=== PATIENT | female | born 1985 | race Caucasian/White ===

== ENCOUNTER 2019-12-07 10:05 | Outpatient (CLI) | payer OTHER, SELFPAY | END 2019-12-07 10:06 | disposition home or self-care (01) | LOC: ANHCOVIDDT 10:05 | PROVIDERS: Visit Provider Surgery Plastic and Reconstructive Surgery | DX: Z01.812 Encounter for preprocedural laboratory examination (principal); Z20.828 Contact with and (suspected) exposure to other viral communicable diseases | CPT/HCPCS: 87635; U0003 ==

== ENCOUNTER 2019-12-10 01:51 | Day surgery (SDC) | payer OTHER, SELFPAY ==
[2019-12-10] VITALS (7 sets, daily range): BP systolic 119–133; BP diastolic 75–83; PULSE 81–109; RESP 16–20; TEMP 36.3–36.7; O2SAT 97–100
--- NOTE | 2019-12-10 06:36 | PM.IMHP ---
H&P: HPI History of Present Illness Chief complaint: Micromastia Narrative: Leandra Mann is a 34 year old female who is here for breast augmentation. She would like to proceed. Review of Systems Review of Systems: All systems reviewed & are unremarkable except as noted in HPI and below PMFSH Past Medical History Medical History (Updated 07/14/19 @ 10:06 by Aicha Jara) History of basal cell carcinoma Surgical History Surgical History (Updated 07/14/19 @ 10:02 by Aicha Jara) History of wisdom tooth extraction Social History Social History (Updated 07/14/19 @ 10:02 by Aicha Jara) Smoking status: Former smoker Alcohol intake: current Gender identity (if verbalized by the patient): Female Meds Home Medications and Allergies Home Medications Medication Instructions Recorded Confirmed Type celecoxib 200 mg capsule 200 mg PO BID 07/14/19 12/09/19 History duloxetine 60 mg capsule,delayed 60 mg PO BID 07/14/19 12/09/19 History release sprinkle hydroxychloroquine 200 mg tablet 200 mg PO BID 07/14/19 12/09/19 History lorazepam 0.5 mg tablet 0.5 mg PO DAILY PRN 07/14/19 12/09/19 History topiramate 50 mg capsule,extended 50 mg PO DAILY 07/14/19 12/09/19 History release 24 hr docusate sodium 100 mg capsule 100 mg PO DAILY #14 cap 11/20/19 12/09/19 Rx carisoprodol 350 mg tablet 350 mg PO TID PRN #21 tablet 11/23/19 12/09/19 Rx oxycodone-acetaminophen 5 mg-325 1 tablet PO Q6H PRN #15 tablet 11/23/19 12/09/19 Rx mg tablet Allergies Allergy/AdvReac Type Severity Reaction Status Date / Time adhesive tape Allergy Unknown blisters Verified 12/03/19 13:45 amoxicillin Allergy Unknown unknown Verified 07/14/19 09:59 Exam Narrative: Exam Narrative: Breast: No masses palpable. Const: General: comfortable, no acute distress, alert and awake; No acute distress Orientation/consciousness: oriented to person HENMT: Head: normal to inspection Ears: external ears normal General nose exam: Normal external nose present Face and sinus: normal facial exam Eyes: General: appearance normal, both eyes and all related structures Periorbital: periorbital findings normal Eyelids: eyelids normal Conjunctivae: conjunctivae normal Neck: Neck: normal visual inspection Chest: Chest palpation & inspection: normal inspection of the chest Resp: Effort & Inspection: normal respiratory effort and able to speak in complete sentences GI: Inspection: normal to inspection Neuro: General: oriented to person Psych: Appearance: grossly normal Mental Status: mental status grossly normal Assessment and Plan Assessment and plan (1) Micromastia: Code(s): N64.82 - Hypoplasia of breast Status: Acute Assessment and Plan: She would like to proceed with bilateral breast augmentation, inspira soft touch, IMF, submuscular, approximately 420 ccs. Risks, benefits, alternatives were discussed in extensive detail. I want to be very realistic about the risks involved as well as expectations. Discussed aftercare and what to monitor for. Made sure I answered all questions answered to satisfaction and consent obtained. (2) History of pulmonary embolism: Code(s): Z86.711 - Personal history of pulmonary embolism Status: Acute Assessment and Plan: Her Lovenox is being managed by her primary care physician. I was very up front honest about these risks and she must be willing to accept the risk of DVT, pulmonary embolism, and to proceed. She is well informed of this by us and her primary care she states. This was again discussed in detail today. She understands shortness of breath, chest pain, calf tenderness and other medical emergencies she needs to dial 911 / proceed to ER. 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
--- NOTE | 2019-12-10 06:57 | WPDANESEPPF ---
Anes - Initial Pre Proc Eval Procedure: Operation Date: 12/10/19 07:30 Proposed Procedures p Bilateral Augmentation Mammoplasty - Chaparro Gipson MD Date/Time: 12/10/19 06:57 Surgeon: Chaparro Gipson MD Pre Op Diagnosis: Micromastia Patient Data Age: 34 Gender: F Height: Weight: 61.24 kg Allergies Allergy/AdvReac Type Severity Reaction Status Date / Time adhesive tape Allergy Unknown blisters Verified 12/03/19 13:45 amoxicillin Allergy Unknown unknown Verified 07/14/19 09:59 Home Medications Medication Instructions Recorded Confirmed Type celecoxib 200 mg capsule 200 mg PO BID 07/14/19 12/09/19 History duloxetine 60 mg capsule,delayed 60 mg PO BID 07/14/19 12/09/19 History release sprinkle hydroxychloroquine 200 mg tablet 200 mg PO BID 07/14/19 12/09/19 History lorazepam 0.5 mg tablet 0.5 mg PO DAILY PRN 07/14/19 12/09/19 History topiramate 50 mg capsule,extended 50 mg PO DAILY 07/14/19 12/09/19 History release 24 hr docusate sodium 100 mg capsule 100 mg PO DAILY #14 cap 11/20/19 12/09/19 Rx carisoprodol 350 mg tablet 350 mg PO TID PRN #21 tablet 11/23/19 12/09/19 Rx oxycodone-acetaminophen 5 mg-325 1 tablet PO Q6H PRN #15 tablet 11/23/19 12/09/19 Rx mg tablet Patient hx anesthesia problems: none Family hx anesthesia problems: none PMFSH Past Medical History Medical History History of basal cell carcinoma Surgical History Surgical History History of wisdom tooth extraction Social History Social History Smoking status: Former smoker Alcohol intake: current Gender identity (if verbalized by the patient): Female Anes - Eval Final PreProcedure Day of Procedure 12/10/19 06:57 Patient weight: normal Heart: regular rate and rhythm Lungs: clear to auscultation Airway: Mallampati scale class II Neurological: alert and oriented Last oral intake: >/= 8 hours ASA classification: II Emergent: no Anesthetic plan: proceed Anesthesia type and monitoring: general LMA and standard monitoring Informed Consent: The patient's anesthetic plan and its attendant risks and benefits were discussed with the patient/family/POA. Questions were solicited and answers provided to the satisfaction of the patient/family/POA.
[2019-12-10] MEDS: LACTATED RINGERS 1,000 ML 30 ML IV CONT ×2 (07:15→08:40)
[2019-12-10] MEDS: CLINDAMYCIN 900 MG/NS 50 ML 900 MG/50 ML PIGGYBACK 50 MG IVPB (07:23)
--- NOTE | 2019-12-10 08:34 | PM.PROC ---
Procedure Note - Detailed Date of procedure: 12/10/19 Pre-op diagnosis: Micromastia She is here today for bilateral breast augmentation. Previously and again today the risks, benefits, alternatives were discussed in extensive detail. I wanted her to be very realistic about the risks involved as well as expectations. We discussed aftercare and what to monitor for. Made sure answered all of her questions to her satisfaction today and consent was obtained. Marked in the preoperative holding area with their verification. The patient was taken to the operating room placed supine on the operating table. Anesthesia was provided by anesthesiology. A surgical time-out was taken. We cleansed the skin and 1% lidocaine and 0.25% Marcaine with epinephrine was used anesthetize as a field block. She was prepped and draped in a standard sterile fashion. Tegaderm nipple Ballesteros were placed. A 15 blade used to make an incision along the inframammary fold. Dissection was continued at 45 degree angle until the chest wall as identified. I incised the pectoralis major along its inferior border and completely released the inferior border leaving the medial border intact. I created a subpectoral pocket in the appropriate dimensions based on our preoperative planning for the implant. I then copiously irrigated with saline solution and verified a strict hemostasis. Next the use a triple antibiotic and Betadine containing solution to irrigate the pocket. I washed my gloves with the triple antibiotic and Betadine solution. We washed the implant immediately upon opening it with this solution and only opened it when we needed it. I used implant funnel and no-touch technique. The implant was introduced into the pocket using the funnel. Having verified positioning of the implant this was closed using 2-0 Vicryl followed by 3-0 Monocryl in a running subcuticular 4-0 Monocryl followed by tissue glue. Fluffs, Alistair wrap, and surgical bra were placed. Patient was awoke and taken to PACU without difficulty. All instrument sponge counts were correct at the end of the case. Post-op diagnosis: same Procedure performed: Bilateral breast augmentation Implants: Bilateral 445cc Natrelle Inspira silicone SoftTouch Implants. Right: Dual plane 1 REF [id number] SN [id number] Left: Dual plane 2 REF [id number] SN [id number] Anesthesia: GLMA Surgeon: Chaparro Gipson MD Estimated blood loss (mL): 5 Drains: No Packing: No Pathology: none sent Complications: No immediate complications Condition: stable Disposition: PACU
[2019-12-10] MEDS: LIDO 1%/EPINEPHRINE 1:100,000 10 ML VIAL 80 ML INFILTRATE (09:38)
== END 2019-12-10 10:16 | disposition home or self-care (01) ==
PROVIDERS: Visit Provider Surgery Plastic and Reconstructive Surgery
PROC: (CPT 19325; principal; 2019-12-10 07:30)
DX: Z41.1 Encounter for cosmetic surgery (principal); N64.82 Hypoplasia of breast; E72.12 Methylenetetrahydrofolate reductase deficiency; M06.9 Rheumatoid arthritis, unspecified; Z86.711 Personal history of pulmonary embolism; Z87.891 Personal history of nicotine dependence
CPT/HCPCS: 19325; A9270; J0131; J1100; J1580; J2250; J2405; J2704; J3010; J7030; J7120

== ENCOUNTER 2021-11-14 01:03 | Day surgery (SDC) | payer OTHER, SELFPAY ==
[2021-11-06 10:32] VITALS: BMI 24.8
--- NOTE | 2021-11-06 10:41 | PC.NURSE ---
Report to the Outpatient Waiting Room, entrance under the green pavilion located off [facility], at time 0730 on date 11/14/21. OR Time: 0930. - You and your visitor will be asked a series of questions to screen for COVID 19 for your protection. - A mask is required within the hospital. One visitor will be allowed to accompany the patient into the hospital. Patients visitor will be instructed to remain with patient at all times or leave the building. We will allow the visitor to come back to the postoperative area when patient is ready. Preoperative COVID Testing Requirements: No COVID Test needed if: (proof is required; if not received patient will have Rapid Test prior to entry) - Patient has received COVID Vaccine at least 14 days prior to procedure date or - Patient has positive COVID test result within last 90 days of surgery date. COVID Test needed if above criteria is not met Patients may have clear liquids (water, carbonated beverages, clear teas, apple juice) until 3 hours prior to surgery with a maximum of 20 ounces. - No food from midnight until time of surgery Take the following medications with a SIP of water the morning of surgery: DULOXETINE, TOPIRAMATE, LORAZEPAM (IF NEEDED) Medications to discontinue per physician: CELECOXIB, HYDROXYCHLOROQUINE Date to take last dose: PER DR. ATKINSON Please no make-up, nail turkmen, hairspray, perfume, deodorant, or body powder the day of surgery. No jewelry (including any body piercings) or valuables the day of surgery, leave them at home. Please take a shower or bath the night before, or the morning of, surgery with an antibacterial soap. Wear comfortable, loose fitting clothing. - Jewelry must be removed prior to entering the operating room. Rings and piercings that are not removed may be cut off. - The hospital will not accept responsibility for valuables. - Please leave all valuables, including medications, at home the day of surgery. If you are going home after surgery, a licensed limousine driver must drive you home. - NO public transportation without another adult. - We recommend that an adult stay with you for 24 hours following discharge. - We also recommend that you do not drive, make important decision, drink alcoholic beverages, or take any drugs that were not prescribed by your health care provider for at least 24 hours after your discharge time. Follow any additional instructions given to you from your surgeon. Telephone instructions given to SHIKHA JONATHAN and asked if any additional questions and then verbalized understanding. Patient advised to call surgeon office or pre surgery nurse liaison [phone] if any additional questions.
[2021-11-14] VITALS (9 sets, daily range): BP systolic 104–143; BP diastolic 67–103; PULSE 53–110; RESP 16–22; TEMP 36.4–37; O2SAT 92–100
[2021-11-14 07:49] LABS: Urine Cotinine NEGATIVE
[2021-11-14] MEDS: LACTATED RINGERS 1,000 ML 30 ML IV CONT ×3 (08:00→13:53)
--- NOTE | 2021-11-14 08:34 | WPDANESEPPF ---
Anes - Initial Pre Proc Eval Procedure: Operation Date: 11/14/21 09:30 Proposed Procedures p Abdominoplasty with Liposuction - Chaparro Gipson MD Date/Time: 11/14/21 08:34 Surgeon: Chaparro Gipson MD Pre Op Diagnosis: skin laxity Patient Data Age: 36 Gender: F Height: 1.63 m Weight: 62.9 kg Last Vital Signs Temp 36.6 C 11/14/21 07:40 Pulse 53 L 11/14/21 07:40 Resp 18 11/14/21 07:40 BP 108/78 11/14/21 07:40 Pulse Ox 100 11/14/21 07:40 Allergies Allergy/AdvReac Type Severity Reaction Status Date / Time adhesive tape Allergy Unknown blisters Verified 11/14/21 07:32 amoxicillin Allergy Unknown unknown Verified 11/14/21 07:32 Home Medications Medication Instructions Recorded Confirmed Type celecoxib 200 mg capsule 200 mg PO BID 07/14/19 11/14/21 History duloxetine 60 mg capsule,delayed 60 mg PO BID 07/14/19 11/14/21 History release sprinkle hydroxychloroquine 200 mg tablet 200 mg PO BID 07/14/19 11/14/21 History lorazepam 0.5 mg tablet 0.5 mg PO DAILY PRN 07/14/19 11/14/21 History topiramate 50 mg capsule,extended 50 mg PO DAILY 07/14/19 11/14/21 History release 24 hr docusate sodium 100 mg capsule 100 mg PO DAILY #14 cap 10/31/21 11/14/21 Rx enoxaparin 40 mg/0.4 mL 40 mg SUBCUT DAILY 30 Days #12 ml 10/31/21 11/14/21 Rx subcutaneous syringe carisoprodol 350 mg tablet 350 mg PO TID PRN #21 tablet 11/01/21 11/14/21 Rx oxycodone-acetaminophen 5 mg-325 1 tablet PO Q6H PRN #30 tablet 11/01/21 11/14/21 Rx mg tablet Laboratory Tests 11/14/21 07:18 Cotinine Negative Patient hx anesthesia problems: none Family hx anesthesia problems: none Results Review: All pre-operative results and documents have been reviewed as part of the pre-operative evaluation. [facility] Past Medical History Medical History (Updated 11/14/21 @ 08:39 by Surjit Hidalgo DO) Arthritis, rheumatoid History of basal cell carcinoma History of pulmonary embolism b/l 2014 MTHFR gene mutation Surgical History Surgical History History of wisdom tooth extraction Social History Social History Smoking packs per day: 1 Smoking cigarettes per day: 20.0 Years smoked: 15 Smoking pack-years: 15.00 Smoking status: Former smoker Tobacco type: cigarettes Smoking end date: 07/22/13 Alcohol intake: never Substance use: never Substance use type: does not use Living arrangements: with family Gender identity (if verbalized by the patient): Female Spiritual care concerns: No Anes - Eval Final PreProcedure Day of Procedure 11/14/21 08:34 Patient weight: normal Heart: regular rate and rhythm Lungs: clear to auscultation and normal air movement Airway: Mallampati scale class II Neurological: alert and oriented Last oral intake: >/= 8 hours ASA classification: III Emergent: no Anesthetic plan: proceed Anesthesia type and monitoring: general ETT and standard monitoring Results Review: All pre-operative results and documents have been reviewed as part of the pre-operative evaluation. Informed Consent: The patient's anesthetic plan and its attendant risks and benefits were discussed with the patient/family/POA. Questions were solicited and answers provided to the satisfaction of the patient/family/POA.
--- NOTE | 2021-11-14 09:02 | WPDHPUPDATE1 ---
History and Physical Update Update Date/Time: 11/14/21 09:02 History and Physical has been reviewed, including an updated exam of the patient. There are NO changes in the patient's condition. Risks, benefits, and alternatives have been discussed and questions answered. Patient agrees to proceed with procedure.
--- NOTE | 2021-11-14 09:04 | W.PM.PROC2 ---
Procedure Note - Detailed Date of Procedure 11/14/21 Pre-op Diagnosis skin laxity Post-op Diagnosis Same Procedure Performed Progressive tension abdominoplasty with suction lipectomy Surgeon Chaparro Gipson MD Anesthesia General Findings Abdominal tissue removed: 1064 grams Lipoaspirate: 2600cc Description of Procedure They are here today for abdominoplasty with suction lipectomy. Previously and again today the risks, benefits, alternatives were discussed in extensive detail. I wanted them to be very realistic about the risks involved as well as expectations. We discussed aftercare and what to monitor for. I was very upfront about the risks of wound breakdown leading to loss of skin, open wounds, and need for additional procedures with permanent abdominal deformity. We discussed DVT/PE risks and management. Made sure answered all of their questions to their satisfaction today and consent was obtained. They were marked in the preoperative holding area with their verification. The patient was taken to the operating room placed supine on the operating table. Anesthesia was provided by anesthesiology. A Nair catheter was started. They were prepped and draped in a standard sterile fashion. A surgical time-out was taken. I placed the patient in a flexed position to verify the upper and lower markings would reach. I then placed supine. A thorough abdominal examination was completed. Stab incisions were made and tumescent solution infiltrated. Suction lipectomy was completed based on pre-operative planning, intraoperative observation, and rolling pinch test which was in full agreement. Completed with a 5mm basket canula based on S.A.F.E. technique. Patient was previous prepped 360 and turned in the operating room to bilateral decubitus position with care taken during these turns to protect from injury. She was supine. A 10 blade was used to make the upper incision. I continued dissection down to the level of fascia. Elevated just what was necessary for repair of the diastasis. I then again flexed the bed to verify the upper skin flap would reach the lower markings without tension. Once verified I placed her supine once again and a 10 blade used to make the lower incision. I elevated up to level the umbilicus and left the umbilicus intact on a well-vascularized stalk. The intervening tissue was removed. A 2 mm blunt cannula with 0.5% bupivicaine was injected deep to the fascia bilaterally. I plicated the diastasis recti using 0 PDO stratafix barbed suture. This was in 2 separate layers using 2 separate sutures as well. I repaired around the umbilicus leaving plenty of room for well-vascularized stalk of the umbilicus with 2-0 PDS. I also repaired lateral to the rectus using two layers of 0 PDO stratafix. The patient was flexed and starting from superior to inferior began plication using 2-0 Vicryl to obliterate all space in a standard progressive tension fashion. At the umbilicus I marked out the location of the skin and inset this with 3-0 Monocryl and 4-0 Vicryl. I continued the remainder of the plication using 2-0 Vicryl until I reached my lower planned scar line. I trimmed any excess skin of the upper flap making sure this was a tension-free closure. I then approximated using a 3 point suture with 2-0 Vicryl followed by 3-0 stratafix ,running subcuticular 4-0 Monocryl, and tissue glue. Fluffs and an abdominal binder were placed. The patient was transferred to the bed in a flexed position. Awoken and taken to the PACU without difficulty. All instrument and sponge counts were correct at the end of the case. Estimated Blood Loss 75 Drains No Packing No Pathology None sent Complications No immediate complications Condition Stable Disposition PACU
[2021-11-14] MEDS: ceFAZolin 2 GM/D5W 50 ML 2 GM/50 ML BAG IVPB (09:11)
[2021-11-14] MEDS: LACTATED RINGERS IRRIG 1,000 ML, LIDOCAINE HCL 1% LOCAL INJ 50 ML, EPINEPHrine HCL INJ ... INFILTRATE (09:11)
[2021-11-14] MEDS: TRANEXAMIC ACID 1,000MG/ISO100 1,000 MG/100 ML BAG 200 MG IVPB (09:30)
[2021-11-14] MEDS: fentaNYL CITRATE INJ (*CRX) 100 MCG/2 ML VIAL 25 MCG IV PUSH ×8 (13:28→14:32)
--- NOTE | 2021-11-14 14:36 | OBPPTRN ---
1435 Patient transferred to post room #281 per bed. Support person present. Oriented to unit, room, information board, admission packet and security measures. Patient verbalizes understanding.
[2021-11-14] MEDS: LACTATED RINGERS 1,000 ML 125 ML IV CONT (15:07)
[2021-11-14] MEDS: MORPHINE SULFATE (*CRX) 2 MG/ML INJ IV PUSH ×2 (17:08→22:51)
[2021-11-14] MEDS: DULoxetine HCL 60 MG CAPSULE.DR PO (17:13)
[2021-11-14] MEDS: CELECOXIB 200 MG CAPSULE PO (17:13)
[2021-11-14] MEDS: carisoprodoL (*CRX) 350 MG TABLET PO (17:40)
[2021-11-14] MEDS: ENOXAPARIN 40 MG/0.4 ML SYRINGE SUB-Q (19:52)
[2021-11-14] MEDS: DOCUSATE SODIUM 100 MG CAPSULE PO (19:55)
[2021-11-14] MEDS: oxyCODONE/ACETAMINOPHEN (*CRX) 5-325 MG TABLET PO (19:55)
[2021-11-15] MEDS: carisoprodoL (*CRX) 350 MG TABLET PO ×3 (00:01→11:40)
[2021-11-15] MEDS: oxyCODONE/ACETAMINOPHEN (*CRX) 5-325 MG TABLET PO ×2 (01:59→08:21)
[2021-11-15] MEDS: diazePAM (*CRX) 5 MG TABLET PO (02:54)
[2021-11-15 05:35] VITALS: BP 98/58; PULSE 71; RESP 16; TEMP 36.4
--- NOTE | 2021-11-15 06:57 | WPDPN ---
Progress Note: A&P Assessment and Plan (1) Skin laxity: Code(s): L57.4 - Cutis laxa senilis Status: Acute Assessment and Plan: Doing well after progressive tension abdominoplasty and suction lipectomy. Will discharge home. I will see her back. Today we had lengthy discussion about the care. Went over the management. What monitor for. Activity limitations. This was a lengthy open-ended conversation making sure answered all of her questions are satisfaction today. We discussed what is a medical emergency and went to proceed to the ER/dial 911. We will see her back. (2) Micromastia: Code(s): N64.82 - Hypoplasia of breast Status: Acute Assessment and Plan: History breast augmentation. (3) History of pulmonary embolism: Code(s): Z86.711 - Personal history of pulmonary embolism Status: Acute Assessment and Plan: She is currently on Lovenox and will be discharged home on Lovenox. She also understands the importance of early ambulation. We had a lengthy discussion again about signs and symptoms in proceeding to the ER/dial 911. She is well aware and has been well informed of these risks. (4) Arthritis, rheumatoid: Code(s): M06.9 - Rheumatoid arthritis, unspecified Status: Acute (5) MTHFR gene mutation: Code(s): E72.12 - Methylenetetrahydrofolate reductase deficiency Status: Acute Subjective Date/time seen: 11/15/21 06:57 She is doing very well after progressive tension abdominoplasty with suction lipectomy. She says overnight she has done well. Pain moderate control. No fevers or chills. No nausea vomiting. No shortness of breath. No chest pain. Her Nair catheter has been removed. Minimal ambulation however. Review of Systems Review of Systems: All systems reviewed & are unremarkable except as noted in HPI and below Exam Narrative: Alert and oriented no obvious distress Respiratory on labored Abdomen soft. No signs of infection. No hematoma. No seroma. Good color and capillary refill No calf tenderness. Negative Homans. Objective Data Vital Signs Vital Signs: Vital Signs - 24 hr 11/14/21 07:40 11/14/21 13:20 11/14/21 13:35 Temperature 36.6 C 36.4 C Pulse Rate 53 L 110 H 94 Respiratory Rate 18 20 16 Blood Pressure 108/78 143/103 H 119/75 Pulse Oximetry 100 95 93 11/14/21 13:50 11/14/21 14:05 11/14/21 14:20 Temperature Pulse Rate 98 95 92 Respiratory Rate 16 22 H 20 Blood Pressure 129/82 127/81 116/79 Pulse Oximetry 96 93 94 11/14/21 14:45 11/14/21 17:08 11/14/21 20:30 Temperature 36.9 C 37.0 C 36.6 C Pulse Rate 83 83 67 Respiratory Rate 16 16 16 Blood Pressure 108/75 133/71 104/67 Pulse Oximetry 96 92 11/15/21 05:35 Temperature 36.4 C Pulse Rate 71 Respiratory Rate 16 Blood Pressure 98/58 L Pulse Oximetry Intake/Output Intake/Output: Intake & Output 11/12/21 11/13/21 11/14/21 11/15/21 23:59 23:59 23:59 23:59 Intake Total 2220 300 Output Total 740 600 Balance 1480 -300 Meds/Results Medications: Active Medications Generic Name Dose Route Start Last Admin Trade Name Freq PRN Reason Stop Dose Admin Carisoprodol 350 mg 11/14/21 18:00 11/15/21 05:35 Carisoprodol (*Crx) 350 Mg Tablet PO 350 mg Q6HR NOA Administration Celecoxib 200 mg 11/14/21 17:00 11/14/21 17:13 Celecoxib 200 Mg Capsule PO 200 mg BID NOA Administration Diazepam 5 mg 11/14/21 12:52 11/15/21 02:54 Diazepam (*Crx) 5 Mg Tablet PO 5 mg TID PRN Administration Anxiety Docusate Sodium 100 mg 11/14/21 21:00 11/14/21 19:55 Docusate Sodium 100 Mg Capsule PO 100 mg Q12HR NOA Administration Duloxetine HCl 60 mg 11/14/21 17:00 11/14/21 17:13 Duloxetine Hcl 60 Mg Capsule.Dr PO 60 mg BID NOA Administration Hydroxychloroquine Sulfate 200 mg 11/14/21 17:00 11/14/21 17:14 Hydroxychloroquine Sulfate 200 Mg Tablet PO Not Given BID NOA L
--- NOTE | 2021-11-15 07:00 | PM.DS ---
DS: Admitting Diagnosis Discharge Date 11/15/2021 Admitting Diagnosis 1. Skin laxity 2. Micromastia 3. 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 Has now undergone progressive tension abdominoplasty with suction lipectomy. Tolerating diet. Will make sure she is ambulating and pain control prior to discharge. She has a history of a clotting disorder and is on Lovenox. After discharge she will ambulate as well as continue Lovenox. She is well informed signs and symptoms as well as risks involved with DVT/PE given her history. Currently doing very well with no signs / symptoms of DVT / PE. Time Spent with Patient Time attestation: Total time spent providing and/or coordinating discharge services:35 Exam Narrative: Alert and oriented no obvious distress Respiratory on labored Abdomen soft. No signs of infection. No hematoma. No seroma. Good color and capillary refill No calf tenderness. Negative Homans. DS: Data Data Completed and Pending Labs on day of discharge: Labs from last 24 hours 11/14/21 07:18 Cotinine Negative Discharge Plan Discharge Patient Disposition: Home, Self-Care Discharge Instructions: POST OPERATIVE DISCHARGE INSTRUCTIONS CHAPARRO GIPSON M.D. [facility] [address] [place] [address] [address] for 24 hours after anesthesia and while you are taking pain medication. Take all prescribed medication as directed Diet as tolerated. No lifting or activity that raises blood pressure for 48 hours. Regular walking / ambulation. Continue Lovenox. Monitor closely for signs / symptoms of deep vein thrombosis (DVT) and pulmonary embolis (PE) May shower 24 hours after surgery. Once you shower do not take pain medication before showering as the combination of medication and heat may cause you to feel dizzy or pass out. No pools or tubs for 2 weeks. Slowly stand up straight as tolerated. No straining or lifting more than 20 pounds. Call with any questions or concerns. Dressing Care: Continue abdominal binder / foam 23 hours per day. If you have any questions or concerns, please call the office . If it is after hours you will be directed to the [facility]. Shortness of breath, chest pain, or other medical emergency dial 911 / proceed to the Emergency Room. Stand Alone Forms: General Discharge Instructions Follow-up/Referrals: Chaparro Gipson MD [Physician] - 1 Week Discharge Medications: Continued celecoxib 200 mg capsule 200 mg PO BID RF: 0 topiramate 50 mg capsule,extended release 24hr 50 mg PO DAILY RF: 0 duloxetine 60 mg capsule, delayed rel sprinkle 60 mg PO BID RF: 0 hydroxychloroquine 200 mg tablet 200 mg PO BID RF: 0 lorazepam 0.5 mg tablet 0.5 mg PO DAILY PRN (Reason: Anxiety) RF: 0 enoxaparin [Lovenox] 40 mg/0.4 mL syringe 40 mg subcut DAILY 30 Days Qty: 12 RF: 0 docusate sodium [Colace] 100 mg capsule 100 mg PO DAILY Qty: 14 RF: 0 carisoprodol [Soma] 350 mg tablet 350 mg PO TID PRN (Reason: muscle pain) Qty: 21 RF: 0 oxycodone-acetaminophen [Percocet] 5-325 mg tablet 1 tablet PO Q6H PRN (Reason: pain) Qty: 30 RF: 0
[2021-11-15 07:15] VITALS: PULSE 71; RESP 16; O2SAT 92
[2021-11-15 08:15] VITALS: BP 101/65; PULSE 84; RESP 16; TEMP 36.8; O2SAT 92
[2021-11-15] MEDS: DULoxetine HCL 60 MG CAPSULE.DR PO (08:22)
[2021-11-15] MEDS: CELECOXIB 200 MG CAPSULE PO (08:22)
[2021-11-15] MEDS: HYDROXYCHLOROQUINE SULFATE 200 MG TABLET PO (08:22)
[2021-11-15] MEDS: DOCUSATE SODIUM 100 MG CAPSULE PO (08:22)
--- NOTE | 2021-11-15 10:29 | WPDANESPN ---
Anes - Prog Note Post-Op Date/Time: 11/15/21 10:29 Cardiovascular status: normal Respiratory status: normal Airway patency: baseline Mental status: baseline Post-Op hydration status: normal Vital Signs: Last Vital Signs Temp 98.3 F 11/15/21 08:15 Pulse 84 11/15/21 08:15 Resp 16 11/15/21 08:15 BP 101/65 11/15/21 08:15 Pulse Ox 92 11/15/21 08:15 Pain Score (VAS): 07/31 I/O: Intake & Output 11/14/21 11/15/21 11/15/21 23:59 07:59 15:59 Intake Total 820 300 Output Total 500 600 Balance 320 -300 Post-procedural complaints: none Patient Feedback: Patient satisfied with anesthetic care.
== END 2021-11-15 12:15 | disposition home or self-care (01) ==
LOC: ANHSURGERY 07:06 → ANHOB2 14:56
PROVIDERS: Visit Provider Surgery Plastic and Reconstructive Surgery
PROC: (CPT 15830; principal; 2021-11-14 09:30)
DX: Z41.1 Encounter for cosmetic surgery (principal); L57.4 Cutis laxa senilis; M06.9 Rheumatoid arthritis, unspecified; E72.12 Methylenetetrahydrofolate reductase deficiency; Z86.711 Personal history of pulmonary embolism; Z79.01 Long term (current) use of anticoagulants; Z87.891 Personal history of nicotine dependence; Z79.899 Other long term (current) drug therapy
CPT/HCPCS: 15830; 15847; 15877; 80307; 99199; A9270; J0171; J0330; J0690; J1100; J1170; J1200; J1650; J2250; J2270; J2405; J2704; J3010; J7120